=== PATIENT | female | born 1970 | race Caucasian/White ===

== ENCOUNTER 2025-08-23 01:58 | Observation (INO) | payer BC ==
[2025-08-23] MEDS ORDERED: Ondansetron PF 4 MG/2 ML Vial ONE (02:07)
[2025-08-23 02:35] LABS: #Basophils Less than 0.03 10x3/uL (0.0-0.2); #Eosinophils 0.10 10x3/uL (0.0-0.7); #Monocytes 0.88 10x3/uL (0.11-0.59); #Neutrophils 6.92 10x3/uL (1.40-6.50); %Basophils 0.1 % (0.0-1.0); %Eosinophils 0.9 % (0.0-10.0); %Lymphocytes 29.6 % (21.0-51.0); %Monocytes 7.8 % (0.0-10.0); %Neutrophils 61.3 % (42.0-75.0); Hematocrit 43.7 % (36.0-47.0); Hemoglobin 13.9 g/dL (12.0-16.0); Mean Corpuscular Hemoglobin 27.5 pg (27.0-31.0); Mean Corpuscular Volume 86.5 fL (78.0-98.0); Platelet Count 309 10x3/uL (130-400); Red Blood Cell (RBC) Count 5.05 mill/uL (4.20-5.40); White Blood Cell (WBC) Count 11.28 10x3/uL (4.8-10.8)
[2025-08-23 02:54] LABS: ALT (SGPT) 13 U/L (Less than 34); AST (SGOT) 26 U/L (11-34); Albumin 4.0 g/dL (3.1-4.5); Alkaline Phosphatase 156 U/L (40-110); Anion Gap 18 mmol/L (10-20); BUN (Urea Nitrogen) 11 mg/dL (9.8-20.1); Bilirubin, Total 0.8 mg/dL (0.3-1.2); CRP, High Sensitivity at Bryan 1.06 mg/dL (< or = 0.5); Calc. Creatinine Clearance 0 mL/min (70-130); Calcium 9.5 mg/dL (7.8-10.44); Carbon Dioxide 20 mmol/L (22-29); Chloride 108 mmol/L (98-107); Globulin 2.9 g/dL (2.4-3.5); Glucose 130 mg/dL (70-105); Lipase 44 U/L (8-78); Magnesium 2.1 mg/dL (1.6-2.6); Potassium 3.4 mmol/L (3.5-5.1); Sodium 143 mmol/L (136-145)
[2025-08-23] MEDS ORDERED: Ondansetron PF 4 MG/2 ML Vial IVP PRN (05:08)
[2025-08-23] MEDS ORDERED: Acetaminophen 325 MG TAB PO PRN (05:08)
[2025-08-23] MEDS: Pantoprazole 40 MG VIAL IVP SCH (08:39)
[2025-08-23] MEDS: Potassium Bicarbonate/Cit Ac 20 MEQ TAB PO SCH (08:51)
[2025-08-23] MEDS: Hydrocortisone Sod Succ/PF 100 mg/2 ml Vial IVP SCH ×2 (08:51→13:07)
[2025-08-23] MEDS ORDERED: Levothyroxine 175 MCG TAB PO SCH (09:00)
[2025-08-23 11:37] VITALS: BMI 33.2
[2025-08-23] MEDS: Hyoscyamine SL 0.125 MG TAB PO PRN (13:07)
[2025-08-23] MEDS: Ondansetron PF 4 MG/2 ML Vial IVP PRN (13:11)
[2025-08-23] MEDS ORDERED: Iopamidol 370 76% 100 ML VIAL ONE (13:44)
[2025-08-23] MEDS: Mirtazapine 15 MG TAB PO SCH (21:48)
[2025-08-23] MEDS: OLANZapine 5 MG TAB PO SCH (21:48)
[2025-08-23] MEDS: Mupirocin 1 GM TUBE NASAL DECOLONIZATION NASAL SCH (21:51)
[2025-08-24] MEDS: Levothyroxine 175 MCG TAB PO SCH (05:31)
[2025-08-24 06:10] LABS: Anion Gap 13 mmol/L (10-20); BUN (Urea Nitrogen) 6 mg/dL (9.8-20.1); Calc. Creatinine Clearance 121 mL/min (70-130); Calcium 8.3 mg/dL (7.8-10.44); Carbon Dioxide 23 mmol/L (22-29); Chloride 108 mmol/L (98-107); Glucose 117 mg/dL (70-105); Potassium 3.5 mmol/L (3.5-5.1); Sodium 140 mmol/L (136-145)
[2025-08-24 06:19] LABS: #Basophils Less than 0.03 10x3/uL (0.0-0.2); #Eosinophils Less than 0.03 10x3/uL (0.0-0.7); #Monocytes 0.42 10x3/uL (0.11-0.59); #Neutrophils 2.00 10x3/uL (1.40-6.50); %Basophils 0.0 % (0.0-1.0); %Eosinophils 0.0 % (0.0-10.0); %Lymphocytes 33.2 % (21.0-51.0); %Monocytes 11.5 % (0.0-10.0); %Neutrophils 55.0 % (42.0-75.0); Hematocrit 34.0 % (36.0-47.0); Hemoglobin 11.1 g/dL (12.0-16.0); Mean Corpuscular Hemoglobin 28.5 pg (27.0-31.0); Mean Corpuscular Volume 87.2 fL (78.0-98.0); Platelet Count 245 10x3/uL (130-400); Red Blood Cell (RBC) Count 3.90 mill/uL (4.20-5.40); White Blood Cell (WBC) Count 3.64 10x3/uL (4.8-10.8)
[2025-08-24 14:10] VITALS: BP 121/86; TEMP 98
== END 2025-08-24 13:20 | disposition home or self-care (01) ==
LOC: ERS 01:58 → MSONC 04:47
PROVIDERS: ADMIT Internal Medicine; ATTEND Internal Medicine
DX: K52.9 Noninfective gastroenteritis and colitis, unspecified (principal); E27.40 Unspecified adrenocortical insufficiency; E87.6 Hypokalemia; E03.9 Hypothyroidism, unspecified; C16.9 Malignant neoplasm of stomach, unspecified; F41.9 Anxiety disorder, unspecified; F32.A Depression, unspecified; Z90.49 Acquired absence of other specified parts of digestive tract; Z79.890 Hormone replacement therapy; Z79.899 Other long term (current) drug therapy
CPT/HCPCS: 36415; 71045; 74177; 80048; 80053; 83605; 83690; 83735; 84484; 85025; 86141; 87040; 93005; 96361; 96374; 96375; 96376; G0378; J1642; J1720; J2270; J2405; J2470; J2543; J7120; Q9967